=== PATIENT | male | born 1945 | race American Indian/Alaskan Native ===

== ENCOUNTER 2016-10-14 12:37 | Outpatient (CLI) | payer MEDICARE ==
--- NOTE | 2016-10-14 13:47 | Cat Scan Report ---
CT scan of head without contrast: History: Hallucinations. Findings: Ventricles are normal in size and midline in location. [id number] volume loss. No evidence of acute ischemia or hemorrhage. Chronic lacunar infarct left and right basal ganglia. No definite evidence of acute ischemia or hemorrhage. No extra-axial fluid collection. Normal brainstem and cerebellum. Retention cyst or polyp right maxillary sinus measuring 1 cm in diameter. Impression: No acute intracranial abnormality. Sinus disease.
== END 2016-10-14 12:38 | disposition home or self-care (01) ==
LOC: CT 12:37
PROVIDERS: ATTEND Internal Medicine
DX: R44.3 Hallucinations, unspecified (principal)
CPT/HCPCS: 70450

== ENCOUNTER 2016-11-22 08:31 | Day surgery (SDC) | payer MEDICARE ==
[~2016-11-22 08:31] MED LIST: INFANTS' GAS RELIEF PO ONE; WATER FOR IRRIG STERILE IR ONE; WATER FOR IRRIG STERILE ONE
[2016-11-22] MEDS ORDERED: AMIDATE IV ONE ×2 (08:58→09:30)
[2016-11-22] MEDS ORDERED: DIPRIVAN 10 MG/ML IV ONE (08:58)
--- NOTE | 2016-11-22 09:28 | Anesthesia Day of Surgery ---
Anesthesia Day of Surgery - Day of Surgery Patient Examined: Yes Patient H&P Reviewed: Yes Patient is NPO: Yes Beta Blockers: No Cardiac Clearance: No Pulmonary Clearance: No
--- NOTE | 2016-11-22 09:29 | Short Stay Summary ---
Short Stay Documentation Date of service: 11/22/16 Narrative H&P: 71 year old for EGD/colonoscopy for recent GI bleeding (melena and/or hematochezia) and history of ascites, possible cirrhosis. - History Principal diagnosis: recent GI bleeding, possible cirrhosis H&P: obtained from office - Allergies and Medications Current Medications: Allergies No Known Allergies Allergy (Verified 11/13/15 12:28) Home Medications Medication Instructions Recorded Confirmed Last Taken Type Vit B Comp&C/Folic Acid/Vit D3 1 each PO Q48HR 04/21/15 11/22/16 11/21/16 History [Dialyvite 800 Plus D Wafer] Ledipasvir/Sofosbuvir [Harvoni 1 tab PO QDAY 04/14/16 11/22/16 04/20/16 History 90-400 mg Tablet] Sevelamer Carbonate [Renvela] 800 mg PO TIDWM 07/08/16 11/22/16 Unknown History hydrALAZINE [Apresoline TAB] 50 mg PO Q8HR 07/08/16 11/22/16 Unknown History ALBUTEROL NEB's [Proventil 0.083% 2.5 mg INHALATION Q6HR PRN 07/09/16 11/22/16 11/19/16 History NEBS] Timolol 0.5% [Timoptic] 1 drops OU DAILY 07/09/16 11/22/16 11/21/16 History ALBUTEROL NEB's [Proventil 0.083% 2.5 mg IH Q6HRT PRN #30 nebu 07/13/1611/19/16 Rx NEBS] Acetaminophen [Acetaminophen TAB] 650 mg PO Q6H PRN #30 tablet 07/13/16 Unknown Rx Epoetin Ludwin 10,000 Unit [Procrit] 10,000 unit IV JERICHO PRN #1 vial 07/13/1611/22 Unknown Rx Lactulose [Cephulac] 20 gm PO TID #60 oral.liqd 07/13/16 11/22/16 Unknown Rx Metoprolol [Lopressor TAB] 50 mg PO BID #60 tablet 07/13/16 11/22/16 11/21/16 Rx ceFAZolin Sodium [ceFAZolin] 2 gm IV TuTh #1 vial 07/13/16 11/22/16 Unknown Rx ceFAZolin Sodium [ceFAZolin] 3 gm IV Sa #1 vial 07/13/16 11/22/16 Unknown Rx oxyCODONE /ACETAMINOPHEN [Percocet 1 tab PO Q6HR PRN #30 tablet 07/13/1611/21/16 Rx 5/325 mg] Lasix TAB 1 tab PO DAILY 11/22/16 11/22/16 11/21/16 History Metoprolol 1 tab PO DAILY 11/22/16 11/22/16 11/21/16 History Active Medications Sodium Chloride (Nacl 0.9% 1000 Ml) 1,000 mls @ 50 mls/hr IV DIRECT ANTONIO Stop: 11/22/16 23:59 - Hospital course Hospital course: Uneventful EGD. Colonoscopy not possible due to inadequate prep. See reports. - Disposition Condition at discharge: Good Disposition: DISCHARGED TO HOME OR SELFCARE - Discharge Diagnoses (1) Erosive gastritis Status: Acute (2) Hiatal hernia Status: Acute (3) History of GI bleed Status: Acute Short Stay Discharge Plan Activity: other (no driving today) Diet: other (resume previous) Additional Instructions: 1. Patient to call for pathology results in 10 days. 2. Patient or family to call to reschedule colonoscopy understanding that he will need to comply with prep instructions including clear liquid diet and laxative as prescribed. Follow up with: JULIO RIZO MD [Primary Care Provider] - 7 Days
--- NOTE | 2016-11-22 09:30 | Anesthesia Consultation ---
Anesthesia Consult and Med Hx Date of service: 11/22/16 - Airway Anesthetic Teeth Evaluation: Edentulous ROM Head & Neck: Adequate Mental/Hyoid Distance: Adequate Mallampati Class: Class II Intubation Access Assessment: Probably Good - Pulmonary Exam CTA: Yes - Cardiac Exam Cardiac Exam: RRR - Pre-Operative Health Status ASA Pre-Surgery Classification: ASA4 Proposed Anesthetic Plan: MAC - Pulmonary Hx Smoking: Yes Hx Asthma: No COPD: Yes (SOB without exertion) Home Oxygen Therapy: Yes (2L) Hx Sleep Apnea: No - Cardiovascular System Hx Hypertension: Yes Hx Coronary Artery Disease: No Hx Heart Attack/AMI: No Hx Angina: No Hx Cardia Arrhythmia: No Hx Heart Murmur: No - Central Nervous System Hx Seizures: No 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
[2016-11-22] MEDS ORDERED: NACL 0.9% 1000 ML 1,000 ML IV SCH (10:00)
--- NOTE | 2016-11-22 10:05 | Post Anesthesia Evaluation ---
- Post Anesthesia Evaluation Patient Participated: No (resting) Airway Patent: Yes Stable Respiratory Function: Yes Nausea/Vomiting: No Temp > 96.8F: Yes Pain Manageable: Yes Adequeate Hydration: Yes Anesthesia Complications: No Block Receding Appropriately: Not Applicable Patient on Ventilator: No
--- NOTE | 2016-11-22 10:10 | Operative Report ---
Operative Report Operative Report: Date of procedure: 11/22/2016 Preprocedure diagnosis: History of recent gastrointestinal tract bleeding ( melena and/or hematochezia) and history of ascites possibly indicative of cirrhosis Post procedure diagnosis: Severe erosive gastritis, hiatal hernia, inadequate bowel prep precluding colonoscopy Procedure name(s): 1. Esophagogastroduodenoscopy with biopsy. 2. Attempted colonoscopy, reduced to fiberoptic sigmoidoscopy. Surgeon: Haja Burnett MD Anesthesia: Monitored anesthesia care EBL: None Procedure: The indications, techniques, potential complications and alternatives , had been discussed in full detail prior to the date of the exam, and once again on the day of the exam. Questions were encouraged and answered, and consent was thereby obtained. The patient was placed in the left lateral decubitus position, and was medicated by anesthesia services. See the anesthesia records for details. The tip of a [employer] video panendoscope was passed easily through the pharynx and into the esophagus which appeared normal throughout its entire length. There was no evidence for varices or esophagitis. A small to moderate size hiatal hernia was traversed as the instrument was advanced into the stomach. Air was insufflated. The stomach distended well. The gastric folds were normal in thickness in the body but were thickened in the antrum. There were punctate erosions in the body a few with tiny, threadlike adherent clots but no active bleeding. There were 3 broad erosions on thickened folds in the antrum ( see photographs) without stigmata of bleeding. The pylorus was patent. No pathology was seen in the duodenal bulb or the post bulbar duodenum to below the level of the ampulla. Retroflexion in the stomach disclosed no additional pathology involving the lesser curvature, fundus or cardia. The prominent antral erosions were biopsied for histology and additional biopsies were obtained from the antrum for rapid Helicobacter pylori testing. There was no significant bleeding from any biopsy site. The endoscope was then withdrawn, with repeat examination of the stomach, esophagogastric junction and esophagus. There were no additional findings. The procedure was well-tolerated. He was then placed in position for colonoscopy. The anal sphincter was digitally dilated. The tip of a [employer] video colonoscope was inserted through the anal sphincter and into the rectal vault. Formed stool was present in the rectum andj distal sigmoid, therefore the procedure was terminated. The instrument was withdrawn. He was then transferred to the recovery area the GI lab for further monitoring to ensure stability prior to his release. See the outpatient record for details regarding instructions to patient, medications and plans for follow-up. This includes recommendation to reschedule colonoscopy with full compliance with prep regimen including clear liquid diet and laxative as prescribed. Final diagnosis: 1. Severe erosive gastritis, sufficient to account for history of bleeding 2. Hiatal hernia 3. Otherwise normal upper endoscopy 4. Poor prep, precluding colonoscopy Haja Burnett M.D. Dictated 11/22/2016 at 10:06 AM
[2016-11-22 10:27] VITALS: BP 171/105
[2016-11-22] MEDS ORDERED: WATER FOR IRRIG STERILE IR ONE (11:40)
== END 2016-11-22 08:32 | disposition home or self-care (01) ==
LOC: GIO 08:31
PROVIDERS: ATTEND Internal Medicine Gastroenterology
DX: K29.50 Unspecified chronic gastritis without bleeding (principal); B96.81 Helicobacter pylori [H. pylori] as the cause of diseases classified elsewhere; K44.9 Diaphragmatic hernia without obstruction or gangrene; J44.9 Chronic obstructive pulmonary disease, unspecified; I13.2 Hypertensive heart and chronic kidney disease with heart failure and with stage 5 chronic kidney disease, or end stage renal disease; N18.6 End stage renal disease; I50.9 Heart failure, unspecified; D64.9 Anemia, unspecified; Z79.899 Other long term (current) drug therapy; Z87.891 Personal history of nicotine dependence; Z99.81 Dependence on supplemental oxygen; Z80.1 Family history of malignant neoplasm of trachea, bronchus and lung; Z86.73 Personal history of transient ischemic attack (TIA), and cerebral infarction without residual deficits
CPT/HCPCS: 43239; 45378; 86677; 88305; 88342; J2704; J7030

== ENCOUNTER 2016-12-01 21:12 | Emergency (ER) | payer MEDICARE ==
[2016-12-01 22:42] LABS: Basophils % (Auto) 0.4 % (0.0-1.8); Eosinophils % (Auto) 0.4 % (0.0-4.3); Hematocrit 32.1 % (35.5-45.6); Hemoglobin 10.8 gm/dl (11.8-15.2); Mean Corpuscular HGB Conc 34 % (32-34); Mean Corpuscular Hemoglobin 31 pg (28-32); Mean Corpuscular Volume 93 fl (84-94); Platelet Count 155 K/mm3 (140-440); Red Blood Count 3.45 M/mm3 (3.65-5.03); Red Cell Distribution Width 18.6 % (13.2-15.2); White Blood Count 9.7 K/mm3 (4.5-11.0)
[2016-12-01 22:52] LABS: BUN/Creatinine Ratio 6.79; Calcium 8.8 mg/dL (8.4-10.2); Chloride 93.1 mmol/L (98-107); Potassium 4.9 mmol/L (3.6-5.0)
--- NOTE | 2016-12-02 05:16 | Emergency Department Report ---
HPI - General Chief Complaint: Recheck/Abnormal Lab/Rx Time Seen by Provider: 12/02/16 02:48 - HPI HPI: The patient is a 71-year-old male with a history of end-stage renal disease, presents for evaluation of weakness. The patient states that he has experienced mild increased weakness from his baseline chronic weakness for the past one day, exacerbated with physical activity, improved with rest. He shares that he also presents for evaluation of his potassium level, and she was informed by his hydro station operator earlier today that his potassium level was significantly elevated. The patient denies fever, chest pain, dyspnea, vomiting , diarrhea, blood in the stool, dark tarry stool, dysuria, hematuria, flank pain , paresthesias, lateralizing motor deficit, or other neuro deficit. He shares that he did receive dialysis earlier today as scheduled. ED Past Medical Hx - Past Medical History Hx Hypertension: Yes Hx Heart Attack/AMI: No Hx Congestive Heart Failure: Yes Hx Liver Disease: Yes (cirrohsis, hx of ascites had paracentesis in 2014) Hx Renal Disease: Yes (Walter Bonner, Sat, sometimes Wed) Hx Arthritis: Yes Hx Seizures: No Hx Kidney Stones: Yes Hx Asthma: No Hx COPD: Yes (SOB without exertion) Additional medical history: Hep C, ascites, - Surgical History Additional Surgical History: graft to left arm.. walter bonner sat dialysis - Social History Smoking Status: Current Some Day Smoker Substance Use Type: None - Medications Home Medications: Home Medications Medication Instructions Recorded Confirmed Last Taken Type Vit B Comp&C/Folic Acid/Vit D3 1 each PO Q48HR 04/21/15 11/22/16 11/21/16 History [Dialyvite 800 Plus D Wafer] Ledipasvir/Sofosbuvir [Harvoni 1 tab PO QDAY 04/14/16 11/22/16 04/20/16 History 90-400 mg Tablet] Sevelamer Carbonate [Renvela] 800 mg PO TIDWM 07/08/16 11/22/16 Unknown History hydrALAZINE [Apresoline TAB] 50 mg PO Q8HR 07/08/16 11/22/16 Unknown History ALBUTEROL NEB's [Proventil 0.083% 2.5 mg INHALATION Q6HR PRN 07/09/16 11/22/16 11/19/16 History NEBS] Timolol 0.5% [Timoptic] 1 drops OU DAILY 07/09/16 11/22/16 11/21/16 History ALBUTEROL NEB's [Proventil 0.083% 2.5 mg IH Q6HRT PRN #30 nebu 07/13/1611/19/16 Rx NEBS] Acetaminophen [Acetaminophen TAB] 650 mg PO Q6H PRN #30 tablet 07/13/16 Unknown Rx Epoetin Ludwin 10,000 Unit [Procrit] 10,000 unit IV JERICHO PRN #1 vial 07/13/1611/22 Unknown Rx Lactulose [Cephulac] 20 gm PO TID #60 oral.liqd 07/13/16 11/22/16 Unknown Rx Metoprolol [Lopressor TAB] 50 mg PO BID #60 tablet 07/13/16 11/22/16 11/21/16 Rx ceFAZolin Sodium [ceFAZolin] 2 gm IV TuTh #1 vial 07/13/16 11/22/16 Unknown Rx ceFAZolin Sodium [ceFAZolin] 3 gm IV Sa #1 vial 07/13/16 11/22/16 Unknown Rx oxyCODONE /ACETAMINOPHEN [Percocet 1 tab PO Q6HR PRN #30 tablet 07/13/1611/21/16 Rx 5/325 mg] Lasix TAB 1 tab PO DAILY 11/22/16 11/22/16 11/21/16 History Metoprolol 1 tab PO DAILY 11/22/16 11/22/16 11/21/16 History ED Review of Systems ROS: Stated complaint: GENERAL WEAKNESS Other details as noted in HPI Constitutional: denies: fever; reports weakness ENT: denies: throat or neck pain Respiratory: denies: cough, shortness of breath Cardiovascular: denies: chest pain Endocrine: denies unexplained weight loss or gain Gastrointestinal: denies: abdominal pain, nausea Genitourinary: denies: dysuria Musculoskeletal: denies: leg swelling Skin: denies: rash Neurological: denies: headache Hematological/Lymphatic: denies: easy bleeding or easy bruising Psych: denies sadness or hopelessness Physical Exam - Physical Exam Vital Signs: Vital Signs 12/01/16 12/02/16 12/02/16 21:56 02:04 03:13 Temperature 98 F 97.4 F L 97.5 F L Pulse Rate 89 87 71 Respiratory 20 18 12 Rate Blood Pressure 168/94 179/101 Blood Pressure 168/94 164/86 [Left] O2 Sat by Pulse 100 100 100 Oximetry 12/02/16 03:15 Temperature Pulse Rate Respiratory 12 Rate Blood Pressure Blood Pressure [Left] O2 Sat by Pulse Oximetry Physical Exam: General: well-nourished, well-developed, no acute distress Head: Normocephalic, atraumatic Eyes: normal sclera ENT: Mucous membranes are pale and dry Neck: No neck stiffness, no cervical adenopathy Respiratory: Breath sounds equal bilaterally, no wheezing, rales, or rhonchi Cardio: S1 and S2 present, no murmurs, rubs, gallops, capillary refill is delayed Abdomen: Normoactive bowel sounds, soft abdomen, no rigidity, no guarding or rebound tenderness Chest WALL/Back: No tenderness to palpation of the chest wall, no CVA tenderness with percussion Musc: No pitting edema Skin: No rash Neuro: no facial drooping, normal speech Psych: Normal affect ED Course Vital Signs 12/01/16 12/02/16 12/02/16 21:56 02:04 03:13 Temperature 98 F 97.4 F L 97.5 F L Pulse Rate 89 87 71 Respiratory 20 18 12 Rate Blood Pressure 168/94 179/101 Blood Pressure 168/94 164/86 [Left] O2 Sat by Pulse 100 100 100 Oximetry 12/02/16 03:15 Temperature Pulse Rate Respiratory 12 Rate Blood Pressure Blood Pressure [Left] O2 Sat by Pulse Oximetry ED Medical Decision Making - Lab Data Result diagrams: 12/01/16 22:18 12/01/16 22:18 - Medical Decision Making The patient was seen and examined by myself. The patient is placed on a cardiac cath lab technologist and continuous pulse ox. On initial evaluation, the patient was found to be in no distress. Evaluation orders were placed. The patient is offered IV fluids for treatment of dehydration and he declines. Lab results only revealed elevated creatinine level, consistent with no history of end- stage renal disease, and otherwise labs are not concerning including normal potassium level. The patient's reevaluated and reports that his weakness is resolved. He states that he feels at his normal baseline. The patient is stable for discharge with outpatient follow-up. The patient is given follow-up and return instructions. The patient expressed understanding and agreed with the plan. The patient is discharged in stable condition. Critical care attestation.: If time is entered above; I have spent that time in minutes in the direct care of this critically ill patient, excluding procedure time. ED Disposition Clinical Impression: Generalized weakness, End stage renal disease on dialysis Anemia Qualifiers: Anemia type: unspecified type Qualified Code(s): D64.9 - Anemia, unspecified Disposition: DISCHARGED TO HOME OR SELFCARE Is pt being admited?: No Does the pt Need Aspirin: No Condition: Stable Instructions: Weakness (ED) Referrals: PRIMARY CARE, [Primary Care Provider] - 3-5 Days Forms: Accompanied Note Time of Disposition: 04:15
[2016-12-02 05:39] VITALS: BP 166/88
== END 2016-12-02 04:45 | disposition home or self-care (01) ==
LOC: ED 21:12
DX: I12.0 Hypertensive chronic kidney disease with stage 5 chronic kidney disease or end stage renal disease (principal); N18.6 End stage renal disease; D64.9 Anemia, unspecified; R53.1 Weakness; I50.9 Heart failure, unspecified; K74.60 Unspecified cirrhosis of liver; M19.90 Unspecified osteoarthritis, unspecified site; J44.9 Chronic obstructive pulmonary disease, unspecified; F17.200 Nicotine dependence, unspecified, uncomplicated; Z99.2 Dependence on renal dialysis; Z86.19 Personal history of other infectious and parasitic diseases
CPT/HCPCS: 36415; 80048; 82962; 85025; 93005; 93010; 99284

== ENCOUNTER 2017-04-18 10:42 | Outpatient (CLI) | payer MEDICARE | END 2017-04-18 10:43 | disposition home or self-care (01) | LOC: VAS 10:42 | DX: M79.662 Pain in left lower leg (principal); M79.89 Other specified soft tissue disorders; I13.2 Hypertensive heart and chronic kidney disease with heart failure and with stage 5 chronic kidney disease, or end stage renal disease; I50.9 Heart failure, unspecified; N18.6 End stage renal disease; D63.1 Anemia in chronic kidney disease; F17.200 Nicotine dependence, unspecified, uncomplicated ==